=== PATIENT | female | born 1945 | race Caucasian/White ===

== ENCOUNTER 2023-09-02 10:58 | Inpatient (IN) ==
[2023-09-02 12:06] LABS: Basophils # (Auto) 0.03 K/mcL (0.00-0.30); Basophils % (Auto) 0.2 % (0.0-2.0); Eosinophils # (Auto) 0.04 K/mcL (0.00-0.70); Eosinophils % (Auto) 0.3 % (0.0-7.0); Hematocrit 26.4 % (34.1-44.9); Hemoglobin 8.1 g/dL (11.2-15.7); Lymphocytes # (Auto) 1.09 K/mcL (1.50-4.80); Lymphocytes % (Auto) 8.7 % (15.5-49.0); Mean Cell Volume 108.2 fL (80.0-100.0); Mean Corpuscular HGB Conc 30.7 g/dL (31.0-36.0); Mean Platelet Volume 8.4 fL (8.8-12.5); Monocytes # (Auto) 1.02 K/mcL (0.10-0.90); Monocytes % (Auto) 8.2 % (1.0-12.0); Neutrophils % (Auto) 82.1 % (38.0-78.0); Platelet Count 326 K/mcL (140-440); RBC 2.44 M/mcL (3.59-5.38); WBC 12.5 K/mcL (4.5-11.0)
[2023-09-02] MEDS: LACTATED RINGERS 1,000 ML IV ONE (12:26)
[2023-09-02 12:46] LABS: ALT/SGPT < 5 U/L (<40); AST/SGOT 12 U/L (<32); Albumin 2.7 gm/dL (3.2-5.2); Albumin/Globulin Ratio 0.8 (1.0-2.3); Alkaline Phosphatase 97 U/L (39-117); Bilirubin,Total 0.3 mg/dL (0.1-1.0); Blood Urea Nitrogen 27 mg/dL (8-23); Calcium 8.7 mg/dL (8.6-10.4); Carbon Dioxide 27 mmol/L (22-30); Chloride 95 mmol/L (96-108); Globulin 3.3 gm/dL (2.2-3.7); Glomerular Filtration Rate 5; Glucose 173 mg/dL (70-105)
[2023-09-02 16:50] LABS: Prothrombin Time 14.1 sec (11.9-14.5)
[2023-09-02 17:36] LABS: Albumin 2.7 gm/dL (3.2-5.2)
[2023-09-02] MEDS ORDERED: PHENYLephrine 1 MG/10 ML SYRINGE (ANEST) ONE (18:05)
[2023-09-02] MEDS ORDERED: PROPOFOL 200 MG/20 ML VIAL IV ONE (18:05)
[2023-09-02] MEDS ORDERED: ONDANSETRON 4 MG/2 ML VIAL ONE (18:05)
[2023-09-02] MEDS ORDERED: GLYCOPYRROLATE 0.2 MG/ML VIAL IV ONE (18:05)
[2023-09-02] MEDS ORDERED: SUGAMMADEX SODIUM 200 MG/2 ML VIAL IV ONE (18:07)
[2023-09-02] MEDS ORDERED: fentaNYL 100 MCG/2 ML VIAL ONE (18:10)
[2023-09-02] MEDS: ceFAZolin 2 GM in DEXTROSE 5% IN WATER 50 ML IV SCH (18:17)
[2023-09-02] MEDS ORDERED: MAGNESIUM SULFATE 2 GM/50 ML BAG IV ONE (18:35)
[2023-09-02] MEDS ORDERED: TRANEXAMIC ACID 1,000 MG/10 ML VIAL ONE (18:40)
[2023-09-02] MEDS ORDERED: fentaNYL 100 MCG/2 ML VIAL IV PRN (19:44)
[2023-09-02] MEDS ORDERED: IPRATROPIUM/ALBUTEROL 3 ML AMPUL.NEB NEB PRN ×2 (19:44→21:33)
[2023-09-02] MEDS: LIDOCAINE 1% 20 ML VIAL SQ ONE (19:47)
[2023-09-02] MEDS ORDERED: VASOPRESSIN 20 UNIT/ML VIAL ONE (19:52)
[2023-09-02] MEDS ORDERED: ePHEDrine 50 MG/ML AMPUL IV ONE (19:59)
[2023-09-02] MEDS: ACETAMINOPHEN 1,000 MG/100 ML BAG IV ONE ×2 (20:46→22:02)
[2023-09-02] MEDS ORDERED: DEXTROSE 31 GM ORAL.SUSP PO PRN (21:33)
[2023-09-02] MEDS ORDERED: ACETAMINOPHEN 325 MG TABLET PO PRN (21:33)
[2023-09-02] MEDS ORDERED: POTASSIUM CHLORIDE 40 MEQ in DEXTROSE 5% IN WATER 500 ML IV PRN (21:33)
[2023-09-02] MEDS ORDERED: POLYETHYLENE GLYCOL 3350 17 GM PACKET PO PRN (21:33)
[2023-09-02] MEDS ORDERED: DEXTROSE 50% 50 ML VIAL IV PRN (21:33)
[2023-09-02] MEDS ORDERED: MAGNESIUM SULFATE 2 GM/50 ML BAG IV PRN (21:33)
[2023-09-02] MEDS ORDERED: SENNOSIDES 1 TABLET PO PRN (21:33)
[2023-09-02] MEDS ORDERED: POTASSIUM CHLORIDE 20 MEQ TABLET PO PRN ×2 (21:33)
[2023-09-02] MEDS: LACTATED RINGERS 500 ML IV SCH (21:56)
[2023-09-02] MEDS: ALBUMIN HUMAN 50 ML IV ONE (22:02)
[2023-09-02] MEDS: morphine 4 MG/ML VIAL IV PRN (22:02)
[2023-09-02] MEDS: 0.9 % SODIUM CHLORIDE 10 ML SYRINGE IV SCH (22:03)
[2023-09-02] MEDS: INSULIN LISPRO 1 UNIT/0.01 ML UNIT SQ SCH (22:36)
[2023-09-02] MEDS: DOCUSATE SODIUM 100 MG CAPSULE PO SCH (22:36)
[2023-09-02] MEDS: HYDROcodone/APAP 5/325MG TABLET PO PRN (22:42)
[2023-09-02] MEDS: ONDANSETRON 4 MG/2 ML VIAL IV PRN (22:43)
[2023-09-02 23:15] LABS: Appearance,Urine Clear (Clear); Bacteria,Urine Many /hpf (0); Bilirubin,Urine Negative (Negative); Color,Urine Yellow; Culture Indicated,Urine No; Glucose,Urine (UA) Negative (Negative); Ketones,Urine Negative (Negative); Leukocyte Esterase,Urine Negative /uL (Negative); Nitrate,Urine Negative (Negative); PH,Urine 7.5 (5.0-9.0); Protein,Urine 100 mg/dL (Negative); Specific Gravity,Urine 1.015 (1.000-1.035); Urine Blood Trace-intact ery/mcL (Negative); Urine RBC 0 /hpf (0-3); Urine Squamous Epithelial Cell 10 /hpf (0-4); Urine WBC 4 /hpf (0-4); Urobilinogen,Urine Normal
[2023-09-02] MEDS: ALBUMIN HUMAN 12.5 GM/50 ML VIAL IV ONE (23:24)
[2023-09-03] MEDS: ceFAZolin 1 GM VIAL IV SCH (01:04)
[2023-09-03] MEDS: ceFAZolin 1 GM VIAL ONE (01:11)
[2023-09-03 06:29] LABS: Basophils # (Auto) 0.04 K/mcL (0.00-0.30); Basophils % (Auto) 0.3 % (0.0-2.0); Eosinophils # (Auto) 0.05 K/mcL (0.00-0.70); Eosinophils % (Auto) 0.4 % (0.0-7.0); Hematocrit 22.8 % (34.1-44.9); Hemoglobin 7.2 g/dL (11.2-15.7); Lymphocytes # (Auto) 1.36 K/mcL (1.50-4.80); Lymphocytes % (Auto) 11.8 % (15.5-49.0); Mean Cell Volume 107.5 fL (80.0-100.0); Mean Corpuscular HGB Conc 31.6 g/dL (31.0-36.0); Mean Platelet Volume 8.4 fL (8.8-12.5); Monocytes # (Auto) 1.02 K/mcL (0.10-0.90); Monocytes % (Auto) 8.8 % (1.0-12.0); Neutrophils % (Auto) 78.2 % (38.0-78.0); Platelet Count 294 K/mcL (140-440); RBC 2.12 M/mcL (3.59-5.38); WBC 11.6 K/mcL (4.5-11.0)
[2023-09-03 07:03] LABS: ALT/SGPT < 5 U/L (<40); AST/SGOT 26 U/L (<32); Albumin 2.6 gm/dL (3.2-5.2); Albumin/Globulin Ratio 0.9 (1.0-2.3); Alkaline Phosphatase 88 U/L (39-117); Bilirubin,Direct < 0.2 mg/dL (0-0.3); Bilirubin,Total < 0.2 mg/dL (0.1-1.0); Blood Urea Nitrogen 27 mg/dL (8-23); Calcium 8.4 mg/dL (8.6-10.4); Carbon Dioxide 27 mmol/L (22-30); Chloride 95 mmol/L (96-108); Glomerular Filtration Rate 6; Glucose 194 mg/dL (70-105); Lactate Dehydrogenase 135 U/L (135-225); Phosphorous 4.8 mg/dL (2.5-4.5); Triglycerides 77 mg/dL (<150); Uric Acid 4.7 mg/dL (2.5-8.0)
[2023-09-03 07:06] LABS: Iron 35 ug/dL (37-145); Parathyroid Hormone Intact-SO 220.8 pg/mL (15.0-65.0); TIBC Calculation 138 ug/dl (228-428); Transferrin % Saturation 25 % (15-50)
[2023-09-03 07:07] LABS: Retic Absolute 0.04 M/mcL (0.02-0.10)
[2023-09-03] MEDS ORDERED: NITROGLYCERIN 0.4 MG TAB.SUBL SL PRN (07:50)
[2023-09-03] MEDS ORDERED: LABETALOL HCL 20 MG/4 ML VIAL IV PRN (07:52)
[2023-09-03] MEDS: PANTOPRAZOLE 40 MG TABLET PO SCH (08:40)
[2023-09-03] MEDS: SEVELAMER 800 MG TABLET PO SCH (08:40)
[2023-09-03] MEDS: LEVOTHYROXINE 25 MCG TABLET PO SCH (08:40)
[2023-09-03] MEDS: CITALOPRAM 20 MG TABLET PO SCH (08:40)
[2023-09-03] MEDS: ATORVASTATIN 40 MG TABLET PO SCH (08:40)
[2023-09-03] MEDS: HEPARIN 5,000 UNIT/ML VIAL SQ SCH (08:41)
[2023-09-03] MEDS: HYDROcodone/APAP 5/325MG TABLET PO PRN (11:09)
[2023-09-03] MEDS: 0.9 % SODIUM CHLORIDE 250 ML IV SCH (12:02)
[2023-09-03] MEDS: morphine 4 MG/ML VIAL IV PRN (12:25)
[2023-09-03] MEDS: METHADONE 5 MG TABLET PO PRN (15:05)
[2023-09-03] MEDS: DARBEPOETIN ALFA 60 MCG/ML VIAL SQ SCH (17:29)
[2023-09-03] MEDS: IRON SUCROSE COMPLEX 100 MG/5 ML VIAL IV SCH (17:29)
[2023-09-03] MEDS: LATANOPROST OPHTH DROPS 2.5ML BOTTLE OU SCH (20:30)
[2023-09-03] MEDS: traZODone HCL 50 MG TABLET PO SCH (20:33)
[2023-09-04 06:21] LABS: Basophils # (Auto) 0.03 K/mcL (0.00-0.30); Basophils % (Auto) 0.2 % (0.0-2.0); Eosinophils # (Auto) 0.27 K/mcL (0.00-0.70); Eosinophils % (Auto) 2.1 % (0.0-7.0); Hematocrit 28.4 % (34.1-44.9); Hemoglobin 8.8 g/dL (11.2-15.7); Lymphocytes # (Auto) 1.42 K/mcL (1.50-4.80); Lymphocytes % (Auto) 10.9 % (15.5-49.0); Mean Platelet Volume 8.6 fL (8.8-12.5); Neutrophils % (Auto) 75.8 % (38.0-78.0); Platelet Count 292 K/mcL (140-440); RBC 2.68 M/mcL (3.59-5.38); Red Cell Distribution Width 16.5 % (11.5-14.5)
[2023-09-04] MEDS: CALCITRIOL 0.25 MCG CAPSULE PO SCH (08:58)
[2023-09-04] MEDS: ceFAZolin 1 GM VIAL IV SCH (08:59)
[2023-09-05 08:13] LABS: Basophils # (Auto) 0.03 K/mcL (0.00-0.30); Basophils % (Auto) 0.3 % (0.0-2.0); Eosinophils % (Auto) 3.9 % (0.0-7.0); Hematocrit 25.8 % (34.1-44.9); Hemoglobin 8.1 g/dL (11.2-15.7); Lymphocytes # (Auto) 1.28 K/mcL (1.50-4.80); Lymphocytes % (Auto) 12.6 % (15.5-49.0); Mean Cell Volume 104.5 fL (80.0-100.0); Mean Corpuscular HGB Conc 31.4 g/dL (31.0-36.0); Mean Platelet Volume 8.2 fL (8.8-12.5); Monocytes % (Auto) 8.9 % (1.0-12.0); Neutrophils % (Auto) 73.5 % (38.0-78.0); Platelet Count 273 K/mcL (140-440); RBC 2.47 M/mcL (3.59-5.38); Red Cell Distribution Width 15.5 % (11.5-14.5); WBC 10.2 K/mcL (4.5-11.0)
== END 2023-09-05 12:40 | DRG 474 ==
LOC: ED 10:58 → SSSU 17:49 → MEDSUR 21:31
PROVIDERS: ADMIT Internal Medicine; ATTEND Internal Medicine